=== PATIENT | female | born 1990 | race African-American/Black ===

== ENCOUNTER 2016-12-09 21:05 | Emergency (ER) | payer BC, MEDICAID ==
[~2016-12-09] VITALS: Ht 157.5 cm; Wt 56.7 kg
[2016-12-09] MEDS ORDERED: NKM (21:17)
[2016-12-09] MEDS ORDERED: Norco 5mg/325mg tab ORAL ONE (21:30)
[2016-12-09] MEDS ORDERED: HYDROCODON-ACE1 EA15 ORAL (21:35)
[2016-12-09] MEDS ORDERED: IBUPROFEN600 MG ORAL (21:35)
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
[2016-12-09 21:41] VITALS: BP 115/59
== END 2016-12-09 21:41 | disposition home or self-care (01) ==
LOC: EMR 21:26
DX: S13.4XXA Sprain of ligaments of cervical spine, initial encounter (principal); S39.012A Strain of muscle, fascia and tendon of lower back, initial encounter; V89.2XXA Person injured in unspecified motor-vehicle accident, traffic, initial encounter; Y93.9 Activity, unspecified; Y99.9 Unspecified external cause status; M54.9 Dorsalgia, unspecified
CPT/HCPCS: 99284